=== PATIENT | male | born 1955 | race Caucasian/White ===

== ENCOUNTER 2019-09-04 01:57 | Inpatient (IN) | payer BC, MEDICARE ==
[~2019-09-04] VITALS: Ht 172.7 cm; Wt 97.3 kg
[2019-09-04] VITALS (8 sets, daily range): BP systolic 120–153; BP diastolic 72–93
[2019-09-04] MEDS ORDERED: ondansetron/PF 4mg/2ml inj IV ONE ×2 (02:20→04:15)
[2019-09-04 02:21] LABS: BASOPHILS # (AUTO) 0.1 X10'3 (0-0.2); BASOPHILS % (AUTO) 0.9 % (0-1); EOSINOPHILS # (AUTO) 0.1 X10'3 (0-0.9); EOSINOPHILS % (AUTO) 0.7 % (0-6); HEMOGLOBIN 13.3 g/dl (14.0-17.9); LYMPHOCYTES # (AUTO) 1.6 X10'3 (1.1-4.8); LYMPHOCYTES % (AUTO) 14.6 % (21-51); MEAN CORPUSCULAR HGB CONC 33.4 g/dL (33.0-36.5); MEAN CORPUSCULAR VOLUME 89.8 FL (78-98); MEAN PLATELET VOLUME 8.7 FL (7.4-10.4); MONOCYTES % (AUTO) 8.8 % (2-12); NEUTROPHILS # (AUTO) 8.3 X10'3 (1.8-7.7); PLATELET COUNT 166 X10'3 (140-440); RED BLOOD COUNT 4.45 X10'6 (4.70-6.10); RED CELL DISTRIBUTION WIDTH 13.6 % (11.5-14.5); WHITE BLOOD COUNT 11.1 X10'3 (4.5-11.0)
[2019-09-04 02:32] LABS: PARTIAL THROMBOPLASTIN TIME 30 SECONDS (22-32)
[2019-09-04 02:36] LABS: ALANINE AMINOTRANSFERASE 37 U/L (12-78); ALBUMIN 4.2 G/DL (3.4-5.0); ALBUMIN/GLOBULIN RATIO 1.4 (1.1-1.5); ALKALINE PHOSPHATASE 51 IU/L (46-116); ANION GAP 15 (8-16); ASPARTATE AMINO TRANSFERASE 42 U/L (10-37); BLOOD UREA NITROGEN 20 MG/DL (7-18); BUN/CREATININE RATIO 13.6 (5.4-32.0); CALCIUM 8.9 MG/DL (8.5-10.1); CHLORIDE 106 MMOL/L (99-107); CREATININE 1.47 MG/DL (0.60-1.10); GLUCOSE 132 MG/DL (70-104); SODIUM 140 MMOL/L (135-145); TOTAL PROTEIN 7.2 G/DL (6.4-8.2); eGFR 48 ML/MIN
[2019-09-04] MEDS ORDERED: nitroGLYCERIN 0.4mg SUBLingual tab SL PRN (02:40)
[2019-09-04] MEDS ORDERED: morphine 4 MG/ML inj SYRINge IV ONE (02:50)
[2019-09-04] MEDS ORDERED: fentaNYL/PF 50MCG/1 ML 2ML syringe IV ONE (03:05)
--- NOTE | 2019-09-04 03:07 | NUR ---
Pt was having pain, went in to check on him, seen morphine was ordered and so I got the morphine, pt stated "Can I even have that?" "Is that the same thing I got [place]?" I informed the patient that I didn't know what he got [place], but asked why. He said he is a transplant patient. However, he doesn't know what he can/can't have. Informed MD, he will change order to fentanyl. The pts primary RN made aware.
[2019-09-04] MEDS ORDERED: acetaminophen 325mg tablet PO PRN (04:10)
[2019-09-04] MEDS ORDERED: ondansetron/PF 4mg/2ml inj IV PRN (04:10)
[2019-09-04] MEDS ORDERED: morphine 2 MG/ML inj. syringe IV PRN ×2 (04:10)
[2019-09-04] MEDS ORDERED: LORazepam 2 mg/ml vial IV ONE (04:15)
[2019-09-04 04:21] LABS: CLARITY,URINE CLEAR (Clear); COLOR,URINE YELLOW (Yellow); GLUCOSE, URINE NEGATIVE (Neg); KETONES,URINE 15 mg/dl (Neg); LEUKOCYTE ESTERASE ,URINE NEGATIVE (Neg); NITRITES, URINE NEGATIVE (Neg); OCCULT BLOOD,URINE MODERATE (Neg); PH,URINE 5.5 (4.8-8.0); PROTEIN,URINE 100 mg/dl (Neg); UROBILINOGEN,URINE 0.2 E.U/dL (0.2-1.0)
[2019-09-04 04:28] LABS: UA COLLECTION TYPE URINAL
[2019-09-04 04:30] LABS: BACTERIA,URINE NONE SEEN /HPF (Neg); RBC,URINE 0-2 /HPF (0-2); SQUAMOUS EPITHELIAL CELL,UR FEW /LPF (FEW); WBC,URINE NONE SEEN /HPF (0-4)
--- NOTE | 2019-09-04 04:51 | NUR ---
Patient in room ED 5. I have received report from AroldoRN in the ER and had the opportunity to ask questions and assume patient care.
[2019-09-04] MEDS ORDERED: proCHLORperazine 10 MG/2 ml inj IV ONE (05:05)
--- NOTE | 2019-09-04 06:22 | NUR ---
Problems reprioritized. Patient report given, questions answered & plan of care reviewed with SHELLY Marquez.
--- NOTE | 2019-09-04 06:33 | NUR ---
Patient in room PCU 3025. I have received report from Sonia BRAVO and had the opportunity to ask questions and assume patient care.
--- NOTE | 2019-09-04 06:59 | NUR ---
Critical lab: Troponin 3 hour. 6.08. Notified primary SHELLY Bob.
[2019-09-04] MEDS ORDERED: PRE5T PO (07:58)
[2019-09-04] MEDS ORDERED: TACR1CAP PO (07:58)
[2019-09-04] MEDS ORDERED: FELO10TA44 PO (07:58)
[2019-09-04] MEDS ORDERED: SIMV-45 PO (07:58)
[2019-09-04] MEDS ORDERED: LISI-604 PO (07:58)
[2019-09-04] MEDS ORDERED: enoxaparin 30mg/0.3ml syringe SUBCUT SCH (08:00)
[2019-09-04] MEDS ORDERED: heparin 25,000 UNIT/250ml bag 250 ML IV SCH (08:23)
[2019-09-04] MEDS ORDERED: tirofiban 5mg in NS 100mL 100 ML IV SCH (08:23)
[2019-09-04] MEDS ORDERED: atorvastatin 20mg tablet PO SCH (08:25)
[2019-09-04] MEDS ORDERED: heparin 10,000 units/1 ML INJ IV ONE (08:25)
[2019-09-04] MEDS ORDERED: heparin 10,000 units/1 ML INJ IV PRN (08:25)
[2019-09-04 08:55] LABS: CHOLESTEROL 162 MG/DL (0-200); HDL CHOLESTEROL 82 MG/DL (35-60); LDL CHOLESTEROL 73 MG/DL (50-100); TRIGLYCERIDES 31 MG/DL (20-135)
[2019-09-04] MEDS ORDERED: LANS30CA56 PO (09:39)
[2019-09-04] MEDS: normal saline 1000ml 1,000 ML IV SCH ×3 (10:20→23:40)
[2019-09-04] MEDS ORDERED: FELODIPINE 10 MG PO SCH (10:36)
[2019-09-04] MEDS: pantoprazole 40mg Tablet.DR PO SCH (10:37)
[2019-09-04] MEDS: tacrolimus anhydrous 1mg capsule PO SCH ×2 (11:22→22:02)
[2019-09-04] MEDS: FELODIPINE 10 MG PO SCH (11:23)
[2019-09-04] MEDS: lisinopril 5mg tablet PO SCH (11:23)
[2019-09-04] MEDS: carVEDilol 3.125mg tablet PO SCH ×4 (11:23→22:07)
[2019-09-04] MEDS: aspirin 81mg tablet.DR PO SCH (11:24)
[2019-09-04] MEDS: sodium chloride 0.45% 1,000 ML IV SCH (11:26)
[2019-09-04 14:16] LABS: BASOPHILS # (AUTO) 0.1 X10'3 (0-0.2); BASOPHILS % (AUTO) 1.2 % (0-1); EOSINOPHILS # (AUTO) 0.3 X10'3 (0-0.9); EOSINOPHILS % (AUTO) 2.7 % (0-6); HEMATOCRIT 38.7 % (42.0-52.0); HEMOGLOBIN 12.9 g/dl (14.0-17.9); LYMPHOCYTES # (AUTO) 2.1 X10'3 (1.1-4.8); LYMPHOCYTES % (AUTO) 22.4 % (21-51); MEAN CORPUSCULAR HEMOGLOBIN 29.7 PG (27.0-31.0); MEAN CORPUSCULAR HGB CONC 33.4 g/dL (33.0-36.5); MEAN CORPUSCULAR VOLUME 88.8 FL (78-98); MEAN PLATELET VOLUME 8.6 FL (7.4-10.4); MONOCYTES # (AUTO) 1.1 X10'3 (0-0.9); NEUTROPHILS % (AUTO) 62.7 % (42-75); PLATELET COUNT 184 X10'3 (140-440); RED BLOOD COUNT 4.35 X10'6 (4.70-6.10); RED CELL DISTRIBUTION WIDTH 13.2 % (11.5-14.5); WHITE BLOOD COUNT 9.6 X10'3 (4.5-11.0)
[2019-09-04] MEDS ORDERED: midazolam 2 mg/2 ml injection ONE (15:45)
[2019-09-04] MEDS ORDERED: fentaNYL/PF 50MCG/1 ML 2ML syringe ONE (15:45)
[2019-09-04] MEDS ORDERED: LIDOcaine 1% (10mg/ml)w/preservative injection 20ml MDV ONE (15:46)
[2019-09-04] MEDS ORDERED: iohexol 350MG/ML 100ml bottle IV ONE (15:46)
[2019-09-04] MEDS ORDERED: nitroGLYCERIN-Tridil 50MG/D5W 250 ML IV ONE (15:48)
[2019-09-04] MEDS ORDERED: heparin 1,000unit/ml 10ml vial 10 ML ONE (15:48)
[2019-09-04] MEDS ORDERED: verapamil 2.5 mg/ml inj IV ONE (15:49)
[2019-09-04] MEDS ORDERED: tirofiban 5mg in NS 100mL 100 ML IV ONE (16:30)
[2019-09-04] MEDS ORDERED: iohexol 350 MG/ML 50ML vial IV ONE (16:38)
[2019-09-04] MEDS ORDERED: ticagrelor 90mg tablet ONE (16:47)
[2019-09-04] MEDS ORDERED: OXAZEpam 15mg capsule PO PRN (17:35)
[2019-09-04] MEDS ORDERED: HYDROcodone/acetaminophen 10/325mg tab PO PRN (17:35)
[2019-09-04] MEDS ORDERED: HYDROcodone/acetaminophen 5mg/325mg tablet PO PRN (17:35)
[2019-09-04] MEDS ORDERED: proCHLORperazine 10 MG/2 ml inj IV PRN (17:35)
--- NOTE | 2019-09-04 18:25 | NUR ---
Notified Dr. Zhang about hand swelling post radial cath
--- NOTE | 2019-09-04 18:43 | NUR ---
Problems reprioritized. Patient report given, questions answered & plan of care reviewed with Jeremy BRAVO.
[2019-09-04] MEDS ORDERED: ticagrelor 90mg tablet PO SCH (20:00)
[2019-09-04] MEDS ORDERED: tacrolimus anhydrous 1mg capsule PO SCH (20:00)
--- NOTE | 2019-09-04 20:00 | NUR ---
Notified Dr. Zhang regarding significant swelling and ecchymosis of right hand and forearm S/P radial cath. Neuro/vascular intact. Aggrastat stopped. Instructed to continue to release pressure from device on wrist.
--- NOTE | 2019-09-04 23:00 | NUR ---
Removed device from wrist and placed simple bandage. No bleeding. Bruising slightly worse, swelling about the same. Good cap refill.
[2019-09-05] MEDS: sodium chloride 0.45% 1,000 ML IV SCH (03:00)
[2019-09-05 05:32] LABS: BASOPHILS # (AUTO) 0.1 X10'3 (0-0.2); BASOPHILS % (AUTO) 0.9 % (0-1); EOSINOPHILS # (AUTO) 0.4 X10'3 (0-0.9); EOSINOPHILS % (AUTO) 3.8 % (0-6); HEMATOCRIT 38.5 % (42.0-52.0); LYMPHOCYTES # (AUTO) 2.1 X10'3 (1.1-4.8); LYMPHOCYTES % (AUTO) 22.8 % (21-51); MEAN CORPUSCULAR HEMOGLOBIN 30.3 PG (27.0-31.0); MEAN CORPUSCULAR HGB CONC 33.7 g/dL (33.0-36.5); MEAN CORPUSCULAR VOLUME 89.8 FL (78-98); MONOCYTES # (AUTO) 1.2 X10'3 (0-0.9); MONOCYTES % (AUTO) 12.6 % (2-12); NEUTROPHILS # (AUTO) 5.6 X10'3 (1.8-7.7); NEUTROPHILS % (AUTO) 59.9 % (42-75); PLATELET COUNT 174 X10'3 (140-440); RED BLOOD COUNT 4.29 X10'6 (4.70-6.10); RED CELL DISTRIBUTION WIDTH 13.7 % (11.5-14.5); WHITE BLOOD COUNT 9.4 X10'3 (4.5-11.0)
[2019-09-05 05:56] LABS: ALANINE AMINOTRANSFERASE 33 U/L (12-78); ALBUMIN 3.3 G/DL (3.4-5.0); ALKALINE PHOSPHATASE 45 IU/L (46-116); ANION GAP 9 (8-16); ASPARTATE AMINO TRANSFERASE 94 U/L (10-37); BILIRUBIN,TOTAL 1.6 MG/DL (0.1-1.0); BLOOD UREA NITROGEN 14 MG/DL (7-18); BUN/CREATININE RATIO 9.2 (5.4-32.0); CALCIUM 8.4 MG/DL (8.5-10.1); CHLORIDE 106 MMOL/L (99-107); CREATININE 1.52 MG/DL (0.60-1.10); GLUCOSE 78 MG/DL (70-104); MAGNESIUM 1.5 MG/DL (1.5-2.4); PHOSPHORUS 2.8 MG/DL (2.3-4.5); SODIUM 138 MMOL/L (135-145); TOTAL CARBON DIOXIDE 23.2 MMOL/L (24-32); TOTAL PROTEIN 6.5 G/DL (6.4-8.2); eGFR 46 ML/MIN
--- NOTE | 2019-09-05 06:30 | NUR ---
Patient in room PCU 3025. I have received report from SHELLY Luna and had the opportunity to ask questions and assume patient care.
[2019-09-05 07:00] VITALS: BP 123/72
[2019-09-05] MEDS: pantoprazole 40mg Tablet.DR PO SCH (07:29)
[2019-09-05] MEDS: carVEDilol 3.125mg tablet PO SCH ×2 (07:29→19:27)
[2019-09-05] MEDS: atorvastatin 20mg tablet PO SCH (07:29)
[2019-09-05] MEDS: ticagrelor 90mg tablet PO SCH ×2 (07:29→19:27)
[2019-09-05] MEDS: aspirin 81mg tablet.DR PO SCH (07:30)
[2019-09-05] MEDS ORDERED: lansoprazole 15mg solutab PO SCH (07:30)
[2019-09-05] MEDS: lisinopril 5mg tablet PO SCH (07:30)
[2019-09-05] MEDS: predniSONE 5mg tablet PO SCH (07:30)
[2019-09-05] MEDS ORDERED: lisinopril 5mg tablet PO SCH (08:00)
[2019-09-05] MEDS ORDERED: enoxaparin 60mg/0.6ml syringe SUBCUT SCH (08:00)
[2019-09-05] MEDS: tacrolimus anhydrous 1mg capsule PO SCH (09:08)
[2019-09-05 11:00] VITALS: BP 118/65
--- NOTE | 2019-09-05 13:00 | NUR ---
Called Dr. Zhang's office and left a message to Dr. Zhang's law office receptionist regarding the status of pts post-cath procedure -- his right arm still swollen and discoloration. Did not receive a call back.
[2019-09-05] MEDS: normal saline 1000ml 1,000 ML IV SCH ×2 (14:10→20:44)
--- NOTE | 2019-09-05 14:10 | NUR ---
New orders from berenice to discontinue 1/2NS and resume [id number]
[2019-09-05 15:00] VITALS: BP 116/71
[2019-09-05 18:00] VITALS: BP 126/73
--- NOTE | 2019-09-05 18:00 | NUR ---
Problems reprioritized. Patient report given, questions answered & plan of care reviewed with SHELLY Wells.
--- NOTE | 2019-09-05 18:20 | NUR ---
Patient in room PCU 3025. I have received report from SHELLY Briggs and had the opportunity to ask questions and assume patient care.
[2019-09-05 19:30] VITALS: BP 119/68
[2019-09-05] MEDS: TACROLIMUS 1MG CAP PO SCH (20:44)
[2019-09-05 22:00] VITALS: BP 119/70
[2019-09-06] MEDS: normal saline 1000ml 1,000 ML IV SCH (03:43)
[2019-09-06 05:22] LABS: BASOPHILS # (AUTO) 0.1 X10'3 (0-0.2); BASOPHILS % (AUTO) 0.7 % (0-1); EOSINOPHILS # (AUTO) 0.3 X10'3 (0-0.9); EOSINOPHILS % (AUTO) 3.9 % (0-6); HEMATOCRIT 31.5 % (42.0-52.0); HEMOGLOBIN 10.6 g/dl (14.0-17.9); LYMPHOCYTES # (AUTO) 2.1 X10'3 (1.1-4.8); LYMPHOCYTES % (AUTO) 25.3 % (21-51); MEAN CORPUSCULAR HEMOGLOBIN 30.4 PG (27.0-31.0); MEAN CORPUSCULAR HGB CONC 33.7 g/dL (33.0-36.5); MEAN PLATELET VOLUME 8.6 FL (7.4-10.4); MONOCYTES # (AUTO) 1.1 X10'3 (0-0.9); NEUTROPHILS # (AUTO) 4.6 X10'3 (1.8-7.7); NEUTROPHILS % (AUTO) 56.1 % (42-75); PLATELET COUNT 136 X10'3 (140-440); RED CELL DISTRIBUTION WIDTH 13.7 % (11.5-14.5); WHITE BLOOD COUNT 8.2 X10'3 (4.5-11.0)
[2019-09-06 05:47] LABS: ALANINE AMINOTRANSFERASE 22 U/L (12-78); ALBUMIN 2.7 G/DL (3.4-5.0); ALBUMIN/GLOBULIN RATIO 1.1 (1.1-1.5); ALKALINE PHOSPHATASE 36 IU/L (46-116); ANION GAP 8 (8-16); ASPARTATE AMINO TRANSFERASE 39 U/L (10-37); BILIRUBIN,TOTAL 0.8 MG/DL (0.1-1.0); BLOOD UREA NITROGEN 15 MG/DL (7-18); BUN/CREATININE RATIO 10.9 (5.4-32.0); CALCIUM 7.7 MG/DL (8.5-10.1); CHLORIDE 111 MMOL/L (99-107); CREATININE 1.38 MG/DL (0.60-1.10); GLUCOSE 93 MG/DL (70-104); MAGNESIUM 1.5 MG/DL (1.5-2.4); PHOSPHORUS 2.6 MG/DL (2.3-4.5); POTASSIUM 3.9 MMOL/L (3.5-5.1); SODIUM 143 MMOL/L (135-145); TOTAL CARBON DIOXIDE 23.6 MMOL/L (24-32); TOTAL PROTEIN 5.2 G/DL (6.4-8.2); eGFR 52 ML/MIN
--- NOTE | 2019-09-06 06:05 | NUR ---
Problems reprioritized. Patient report given, questions answered & plan of care reviewed with SHELLY Briggs.
--- NOTE | 2019-09-06 06:11 | NUR ---
Patient in room PCU 3025. I have received report from SHELLY Phillips and had the opportunity to ask questions and assume patient care.
[2019-09-06 07:00] VITALS: BP 113/65
[2019-09-06] MEDS: aspirin 81mg tablet.DR PO SCH (08:37)
[2019-09-06] MEDS: predniSONE 5mg tablet PO SCH (08:38)
[2019-09-06] MEDS: ticagrelor 90mg tablet PO SCH (08:38)
[2019-09-06] MEDS: pantoprazole 40mg Tablet.DR PO SCH (08:38)
[2019-09-06] MEDS: atorvastatin 20mg tablet PO SCH (08:38)
[2019-09-06] MEDS: carVEDilol 3.125mg tablet PO SCH (08:39)
[2019-09-06] MEDS: FELODIPINE 10 MG PO SCH (08:39)
[2019-09-06] MEDS: lisinopril 5mg tablet PO SCH (08:39)
[2019-09-06] MEDS: TACROLIMUS 1MG CAP PO SCH (08:40)
--- NOTE | 2019-09-06 10:30 | NUR ---
Spoke to Dr. Zhang, stated that the swelling and discoloration is normal and should subside in a few weeks.
[2019-09-06 11:00] VITALS: BP 117/69
[2019-09-06] MEDS ORDERED: COR3.125T PO (14:27)
[2019-09-06] MEDS ORDERED: TICA90TA PO (14:27)
[2019-09-06] MEDS ORDERED: NITR0.4T51 SL (14:27)
[2019-09-06] MEDS ORDERED: ASPI-1071 PO (14:27)
[2019-09-06] MEDS ORDERED: APIX5TAB3 PO (14:33)
[2019-09-06 15:00] VITALS: BP 127/83
--- NOTE | 2019-09-06 18:45 | NUR ---
Pt stable for discharge per MD orders. Reviewed and educated pt regarding discharge orders. Answered any questions pt and had about discharge. Hand given pt copies of new prescriptions. Prescriptions to be picked up at [facility] in [facility]. Tele monitor removed. PIV removed, cannula intact. Pt sent with belongings. Pt walked with orientee to [place] and pt transported via personal vehicle with .
[2019-09-06] MEDS ORDERED: apixaban 5mg tablet PO SCH (20:00)
== END 2019-09-06 18:00 | disposition home or self-care (01) | DRG 247 ==
LOC: ER 01:57 → ED HOLD 04:07 → PCU 3S 06:02
PROC: 4A023N7 Measurement of Cardiac Sampling and Pressure, Left Heart, Percutaneous Approach (ICD-10-PCS; principal; 2019-09-04)
PROC: 027034Z Dilation of Coronary Artery, One Artery with Drug-eluting Intraluminal Device, Percutaneous Approach (ICD-10-PCS; 2019-09-04)
PROC: B2111ZZ Fluoroscopy of Multiple Coronary Arteries using Low Osmolar Contrast (ICD-10-PCS; 2019-09-04)
PROC: B2151ZZ Fluoroscopy of Left Heart using Low Osmolar Contrast (ICD-10-PCS; 2019-09-04)
DX: I21.4 Non-ST elevation (NSTEMI) myocardial infarction (principal); I48.92 Unspecified atrial flutter; Z94.0 Kidney transplant status; I44.7 Left bundle-branch block, unspecified; I12.9 Hypertensive chronic kidney disease with stage 1 through stage 4 chronic kidney disease, or unspecified chronic kidney disease; N18.9 Chronic kidney disease, unspecified; I48.91 Unspecified atrial fibrillation; E78.5 Hyperlipidemia, unspecified; F12.90 Cannabis use, unspecified, uncomplicated; Z79.01 Long term (current) use of anticoagulants; Z79.82 Long term (current) use of aspirin; Z87.441 Personal history of nephrotic syndrome; Z79.899 Other long term (current) drug therapy; S50.11XA Contusion of right forearm, initial encounter; X58.XXXA Exposure to other specified factors, initial encounter; Y93.89 Activity, other specified; Y92.234 Operating room of hospital as the place of occurrence of the external cause; Y99.8 Other external cause status
CPT/HCPCS: 93306; 93458; 96374; 96375; 99285; C9600; 36415; 80053; 80061; 80197; 81001; 83735; 84100; 84484; 85025; 85610; 85730; 93005; 99152; 99153; A4620; A5120; C1725; C1751; C1769; C1874; C1894; G0378; J0780; J1644; J2001; J2060; J2250; J2405; J3010; J3246; J3490; J7030; J7512; Q9967